=== PATIENT | female | born 1990 | race Two or more races ===

== ENCOUNTER 2021-09-05 10:02 | Outpatient (REF) | payer OTHER, SELFPAY ==
[2021-09-05 12:02] LABS: Binax Internal Control QC Valid; Binax Now Covid-19 Ag Negative (Negative)
== END 2021-09-05 10:03 | disposition home or self-care (01) ==
LOC: HO.LAB 10:02
PROVIDERS: Visit Provider Internal Medicine
DX: Z20.822 Contact with and (suspected) exposure to COVID-19 (principal)
CPT/HCPCS: 36415; C9803

== ENCOUNTER 2022-02-02 21:53 | Emergency (ER) | payer OTHER, SELFPAY ==
[2022-02-02 22:42] VITALS: BP 157/104; PULSE 99; RESP 20; TEMP 36.6; O2SAT 98; BMI 40.6
[2022-02-02 23:36] VITALS: BP 167/112; PULSE 78; RESP 18; TEMP 36.6; O2SAT 99
--- NOTE | 2022-02-03 00:23 | ED.EAR ---
HPI - Ear Problem General Chief complaint: Ear Problems Stated complaint: ear infection Time Seen by Provider: 02/03/22 00:23 Source: patient Mode of arrival: ambulatory Limitations: no limitations History of Present Illness HPI Narrative: 31-year-old female came in for evaluation of left ear pain. Patient has been having cough, nasal congestion was diagnosed with bronchitis by her PCP, started today to have left ear pain. No fever or chills. Patient is prone to ear infection when she has upper respiratory infection, no recent swimming. Related Data Previous Rx's Medication Instructions Recorded azithromycin 200 mg/5 mL oral See Rx Instructions .ROUTE 02/03/22 suspension .COMPLEX #30 ml ciprofloxacin 0.2 %-hydrocortisone 3 drp OTIC (EARS) BID 7 Days #10 ml 02/03/22 1 % ear drops,suspension (Cipro HC) Allergies Allergy/AdvReac Type Severity Reaction Status Date / Time amoxicillin [AMOXICILLIN] Allergy Unknown HIVES Unverified 02/02/22 22:44 Review of Systems Review of Systems: All other systems are reviewed and are negative Constitutional: Reports as per HPI and Reports no additional constitutional complaints Eyes: Reports as per HPI and Reports no additional eye complaints Reports system reviewed and no additional complaints, except as documented Cardiovascular: Reports as per HPI and Reports no additional cardiovascular complaints Respiratory: Reports as per HPI and Reports no additional respiratory complaints Gastrointestinal: Reports as per HPI and Reports no additional gastrointestinal complaints Genitourinary: Reports no additional female genitourinary complaints Musculoskeletal: Reports no additional musculoskeletal complaints Skin/Breast: Reports system reviewed and no additional complaints, except as docu Psychiatric: Reports no additional psychiatric complaints Endocrine: Reports no additional endocrine complaints Hematologic/Lymphatic: Reports no additional hematologic/lymphatic complaints Allergic/Immunologic: Reports no additional allergic/immunologic complaints Reports system reviewed and no additional complaints, except as documented and Reports Abnormal speech present [facility] Social History Social History Alcohol intake: never Patient Tobacco Use Status: Former Tobacco user Smoked in Last 30 Days: No Use of substances other than those prescribed or required for medical reasons: No Advance Directives: No Advance Directives Information Provided: No Physical Exam Vital Signs: Vital Signs: Last Vital Signs Temp 97.9 F 02/02/22 23:36 Pulse 78 02/02/22 23:36 Resp 18 06/04/22 23:36 BP 167/112 H 02/02/22 23:36 Pulse Ox 99 02/02/22 23:36 BMI result Body Mass Index 40.6 Vital signs have been reviewed as appeared to be correct. Blood pressure normal. Heart rate normal. Respiration rate normal. Temperature normal. Oxygen saturation normal. Appearance: Alert. Oriented X3. No acute distress. Head: Normal external exam. Normocephalic. Atraumatic. No Luna signs noted. No raccoon eyes noted Eyes: PERRLA. EOMI. Conjunctiva and sclera normal. Eyelids normal. ENT: Left TM is erythematous, slight erythema in the auditory canal, Pharynx normal. Uvula midline. Moist mucous membranes. No trismus noted. No drooling noted. No muffled voice noted. Neck: Normal inspection. Neck supple. FROM. No adenopathy. Thyroid Normal. No meningeal signs. No neck mass noted. CVS: Normal heart rate and rhythm. Heart sound normal. No murmurs noted. Pulses normal throughout. Respiratory: No respiratory distress. Painless inspiration. Breath sounds normal. No wheezes/rales/rhonchi noted. Chest nontender. No accessory muscle usage noted or decreased air movement noted. Abdomen: Soft and nontender. Bowel sounds normal in all 4 quadrants. No distention noted. No organomegaly noted. No visible injury noted. Back: No CVA tenderness. Full range of motion noted. Skin: Skin warm and dry. Normal skin color. Normal skin turgor. No rashes/lesions/lacerations noted. Extremities: No lower extremity edema. Extremities exhibit normal range of motion. Extremities nontender. Neuro: Oriented X 3. Cranial nerve exam: II-XII are grossly intact No motor deficit. No sensory deficit. Reflexes normal. Course Course Course Narrative: Assessment and plan. 31-year-old female history of diabetes and recurrent ear infection. Will start the patient on Zithromax and several otic ear drops Discharge Plan Discharge Clinical Impression: Otitis externa, Otitis media Patient Disposition: Home, Self-Care Instructions: Ear Infection (ED) Prescriptions: New azithromycin 200 mg/5 mL suspension for reconstitution See Rx Instructions .ROUTE .COMPLEX Qty: 30 0RF Rx Instructions: take 12.5 mL (500 mg) by mouth today (day 1), then 6.25 mL (250 mg) daily for 4 days (days 2-5) Cipro HC 0.2-1 % drops,suspension 3 drp otic (ears) BID 7 Days Qty: 10 0RF Referrals: Physician,Unknown J [Primary Care Provider] -
== END 2022-02-03 00:41 | disposition home or self-care (01) ==
PROVIDERS: Emergency Provider Emergency Medicine
DX: H66.92 Otitis media, unspecified, left ear (principal); H60.92 Unspecified otitis externa, left ear
CPT/HCPCS: 99283

== ENCOUNTER 2022-07-04 23:13 | Emergency (ER) | payer OTHER, SELFPAY ==
[2022-07-04 23:23] VITALS: BP 186/100; PULSE 93; RESP 15; TEMP 37; O2SAT 100; BMI 40.6
[2022-07-04 23:46] LABS: Strep A Nucleic Acid Negative (Negative)
--- NOTE | 2022-07-05 00:21 | ED.URI ---
HPI - URI/Sore Throat General Chief Complaint: Ear Problems Stated Complaint: Sore throat/Earache Time Seen by Provider: 07/05/22 00:12 Source: patient Mode of arrival: ambulatory Limitations: no limitations History of Present Illness HPI Narrative: Patient complaining of some left ear pain sore throat nasal congestion for last 4 days other members also sick with URI home COVID test was negative no fever no chills patient already been vaccinated against go Related Data Previous Rx's Medication Instructions Recorded azithromycin 200 mg/5 mL oral See Rx Instructions PO .COMPLEX 02/03/22 suspension #30 mL ciprofloxacin 0.2 %-hydrocortisone 3 drp otic (ears) BID 7 days #10 mL 02/03/22 1 % ear drops,suspension (Cipro HC) azithromycin 250 mg tablet 250 mg PO DAILY 4 days #4 tabs 07/05/22 (Zithromax) ibuprofen 600 mg tablet 600 mg PO Q6H PRN fever or pain 07/05/22 #20 tabs Allergies Allergy/AdvReac Type Severity Reaction Status Date / Time amoxicillin [AMOXICILLIN] Allergy Unknown HIVES Verified 07/04/22 23:26 Review of Systems Review of Systems: Yes all other systems are reviewed and are negative [facility] Social History Social History Alcohol intake: never Patient Tobacco Use Status: Former Tobacco user Advance Directives: No Advance Directives Information Provided: Yes Physical Exam Vital Signs: Vital Signs: Last Vital Signs Temp 98.6 F 07/04/22 23:23 Pulse 93 07/04/22 23:23 Resp 15 07/04/22 23:23 BP 186/100 H 07/04/22 23:23 Pulse Ox 100 07/04/22 23:23 O2 Del Method 07/04/22 23:23 BMI result Body Mass Index 40.6 Appearance: Alert. Oriented X3. No acute distress. HEENT: Pharynx normal. Oral Mucosa moist left tympanic membrane slightly erythematous and dull with fluid behind , inflamed nasal turbinate Neck: Normal inspection. Neck supple. CVS: Normal heart rate and rhythm. Pulses normal. Respiratory: No respiratory distress. Equal air entry bilateral, no wheezing/rales/rhonchi Abdomen: Soft and nontender. Bowel sounds are present, no mass palpable, no CVA tenderness Skin: Skin warm and dry. Normal skin color. Normal skin turgor. Neuro: Oriented X 3. MDM - URI/Sore Throat Lab Data Attestation: I reviewed the patient's lab results. Labs: Lab Results 07/04/22 Range/Units 23:28 S. pyogenes GrpA ARIANNE Negative (Negative) Discharge Plan Discharge Clinical Impression: Otitis media Patient Disposition: Home, Self-Care Instructions: Ear Infection (ED) Additional Instructions: Take antibiotic as prescribed Ibuprofen for pain Follow with PCP if not better Prescriptions: New azithromycin [Zithromax] 250 mg tablet 250 mg PO DAILY 4 Days Qty: 4 0RF Rx Instructions: start on day 2 of therapy ibuprofen 600 mg tablet 600 mg PO Q6H PRN (Reason: fever or pain) Qty: 20 0RF No Action azithromycin 200 mg/5 mL suspension for reconstitution See Rx Instructions .ROUTE .COMPLEX Qty: 30 0RF Rx Instructions: take 12.5 mL (500 mg) by mouth today (day 1), then 6.25 mL (250 mg) daily for 4 days (days 2-5) Cipro HC 0.2-1 % drops,suspension 3 drp otic (ears) BID 7 Days Qty: 10 0RF
[2022-07-05] MEDS: Azithromycin 500 MG TABLET PO (00:34)
== END 2022-07-05 00:37 | disposition home or self-care (01) ==
PROVIDERS: Emergency Provider Internal Medicine
DX: H66.92 Otitis media, unspecified, left ear (principal); H92.02 Otalgia, left ear; R09.81 Nasal congestion; Z20.822 Contact with and (suspected) exposure to COVID-19; Z79.899 Other long term (current) drug therapy
CPT/HCPCS: 36415; 87651; 99282; 99283